=== PATIENT | male | born 1950 | race Caucasian/White ===

== ENCOUNTER 2016-05-06 09:29 | Inpatient (IN) | payer MEDICARE ==
[2016-05-06] VITALS (17 sets, daily range): BP systolic 57–157; BP diastolic 20–78; PULSE 102–142; RESP 24–38; TEMP 100.1–100.6; O2SAT 92–100
[2016-05-06] MEDS: RESP: ALBUTEROL 2.5 MG/IPRATROPIUM 0.5 MG NEB (SCH) INH (09:43)
[2016-05-06 09:44] LABS: AUTOMATED NEUTROPHIL # 18.5 TH/MM3 (1.8-7.7); BASOPHIL % 0.2 % (0.0-2.0); HEMATOCRIT 45.2 % (39.0-51.0); LYMPH % 7.1 % (9.0-44.0); LYMPHOCYTE # 1.5 TH/MM3 (1.0-4.8); MEAN CELL VOLUME 94.8 FL (80.0-100.0); MEAN CORPUSCULAR HEMOGLOBIN 31.5 PG (27.0-34.0); MEAN CORPUSCULAR HGB CONC 33.2 % (32.0-36.0); MONO % 5.1 % (0.0-8.0); NEUT % 87.6 % (16.0-70.0); PLATELET COUNT 246 TH/MM3 (150-450); RED BLOOD COUNT 4.76 MIL/MM3 (4.50-5.90); RED CELL DISTRIBUTION WIDTH 13.1 % (11.6-17.2); WHITE BLOOD COUNT 21.1 TH/MM3 (4.0-11.0)
[2016-05-06 09:45] LABS: HEMO FLAGS DIFF FINAL
[2016-05-06] MEDS ORDERED: SODIUM CHLORIDE 0.9% FLUSH 5 ML FLUSH IVF PRN ×2 (09:45→14:15)
[2016-05-06] MEDS ORDERED: SODIUM CHLOR 0.9% 1000 ML INJ 1,000 ML IV ONE ×4 (09:45→12:00)
[2016-05-06 09:54] LABS: CHLORIDE 104 MEQ/L (98-107); POTASSIUM 3.9 MEQ/L (3.5-5.1); SODIUM (NA) 143 MEQ/L (136-145)
[2016-05-06 09:56] LABS: ANION GAP 14 MEQ/L (5-15); APTT (PATIENT) 22.9 SEC (24.3-30.1); BICARBONATE 25.4 MEQ/L (21.0-32.0); BLOOD UREA NITROGEN 19 MG/DL (7-18); INTERNATIONAL NORMALIZED RATIO 0.9 RATIO; MAGNESIUM 2.5 MG/DL (1.5-2.5); PROTHROMBIN TIME - PATIENT 10.2 SEC (9.8-11.6)
[2016-05-06 09:59] LABS: ALT (GPT) 282 U/L (12-78); GLOMERULAR FILTRATION RATE 47 ML/MIN (>89)
[2016-05-06 10:00] LABS: AST (GOT) 211 U/L (15-37)
[2016-05-06] MEDS ORDERED: LORazepam 2 MG/ML VIAL IV PUSH ONE ×2 (10:00→12:00)
[2016-05-06 10:01] LABS: TOTAL BILIRUBIN ADULT 0.9 MG/DL (0.2-1.0)
--- NOTE | 2016-05-06 10:01 | PD ---
HPI Chief Complaint: Respiratory Distress Time Seen by Provider: 09:31 Travel History International Travel<30 days: No Contact w/Intl Traveler<30days: No Traveled to known affect area: No History of Present Illness HPI Patient is a 65-year-old male with history of end-stage COPD, presents to emergency room with complaints of COPD exacerbation. Patient reports that for the past 4 days, he has had increased nonproductive cough and wheezing and shortness of breath. Patient reports that symptoms have been getting progressively worse this morning, reports that he feels as if he can't breathe at this time. On route to the emergency room, patient was given Solu-Medrol 125 mg as well as 1 albuterol treatment with minimal relief of symptoms. As per EMS, patient refuses intubation in field. Patient does report that he was on hospice for COPD, reports that he recently took himself off of hospice. Patient in the emergency room is and respiratory distress, patient is alert and oriented 3. Patient reports that he's had a nonproductive cough for the past 3 days. Reports that he has had increased wheezing and shortness of breath, symptoms are worse today. Patient denies any fevers or chills or any sick contacts. Patient denies chest pain at this time. Patient currently using intubation, patient was asked multiple times what his CODE STATUS is. Patient is a DNR/DNI. Patient does not want to be intubated at any time during his course of ER treatment and hospital admission [facility] Past Medical History COPD: Yes Respiratory: Yes Past Surgical History Surgical History: No Previous Surgery Social History Alcohol Use: No Tobacco Use: No (past smoker) Allergies-Medications (Allergen,Severity, Reaction): Coded Allergies: No Known Allergies (Unverified , 05/06/16) Review of Systems General / Constitutional: No: Fever Eyes: No: Visual changes HENT: No: Headaches Cardiovascular: No: Chest Pain or Discomfort Respiratory: Positive: Cough, Shortness of Breath, Wheezing Gastrointestinal: No: Abdominal Pain Genitourinary: No: Dysuria Musculoskeletal: No: Pain Skin: No Rash Neurologic: No: Weakness Psychiatric: No: Depression Endocrine: No: Polydipsia Hematologic/Lymphatic: No: Easy Bruising Physical Exam Narrative GENERAL: Patient in severe distress SKIN: Warm and dry. HEAD: Atraumatic. Normocephalic. EYES: Pupils equal and round. No scleral icterus. No injection or drainage. ENT: No nasal bleeding or discharge. Mucous membranes pink and moist. NECK: Trachea midline. No JVD. CARDIOVASCULAR: Tachycardic. No murmur appreciated. RESPIRATORY: Patient with accessory muscle use. Expiratory wheezing bilaterally GASTROINTESTINAL: Abdomen soft, non-tender, nondistended. Hepatic and splenic margins not palpable. MUSCULOSKELETAL: No obvious deformities. No clubbing. No cyanosis. No edema. NEUROLOGICAL: Awake and alert. No obvious cranial nerve deficits. Motor grossly within normal limits. Normal speech. PSYCHIATRIC: Appropriate mood and affect; insight and judgment normal. Patient is alert and oriented 3 Data Data Last Documented VS Vital Signs Date Time Temp Pulse Resp B/P Pulse Ox O2 Delivery O2 Flow Rate FiO2 05/06/16 10:25 100.1 05/06/16 10:15 122 24 128/77 BiPAP 05/06/16 09:58 93 40 Orders Complete Blood Count With Diff (05/06/16 09:32) Comprehensive Metabolic Panel (05/06/16:32) B-Type Natriuretic Peptide (05/06/16:32) Act Partial Throm Time (Ptt) (05/06/16 09:32) Prothrombin Time / Inr (Pt) (05/06/16:32) Magnesium (Mg) (05/06/16:32) Ckmb (Isoenzyme) Profile (05/06/16:32) Troponin I (05/06/16 09:32) Arterial Blood Gas (Abg) (05/06/16 09:32) Urinalysis - C+S If Indicated (05/06/16:32) Influenzae A/B Antigen (05/06/16:32) Blood Culture (05/06/16 09:32) Iv Access Insert/Monitor (05/06/16:32) Electrocardiogram (05/06/16:32) Ecg Monitoring (05/06/16:32) Oximetry (05/06/16:32) Oxygen Administration (05/06/16 09:32) Sodium Chloride 0.9% Flush (Ns Flush) (05/06/16 09:45) Albuterol-Ipratropium Neb (Duoneb Neb) (05/06/16 09:45) Resp Bipap / Cpap Non Invas Vt (05/06/16 09:32) Chest, Single Ap (05/06/16 09:35) Magnesium Sulfate 1 Gm Premix (Magnesium (05/06/16 09:45) Sodium Chlor 0.9% 1000 Ml Inj (Ns 1000 M (05/06/16 09:45) Lorazepam Inj (Ativan Inj) (05/06/16 10:00) CKMB (05/06/16 09:33) CKMB% (05/06/16 09:33) Lactic Acid Sepsis Protocol (05/06/16 10:13) Ceftriaxone Inj (Rocephin Inj) (05/06/16 10:14) Azithromycin Inj (Zithromax Inj) (05/06/16 10:14) Sodium Chlor 0.9% 1000 Ml Inj (Ns 1000 M (05/06/16 10:15) Sodium Chlor 0.9% 1000 Ml Inj (Ns 1000 M (05/06/16 10:15) Acetaminophen Supp (Tylenol Supp) (05/06/16 10:45) Lorazepam Inj (Ativan Inj) (05/06/16 12:00) Sodium Chlor 0.9% 1000 Ml Inj (Ns 1000 M (05/06/16 12:00) Code Status (05/06/16 11:58) Admit Order (Ed Use Only) (05/06/16 11:58) Consult Palliative Care (05/06/16 ) Aspirin Supp (Aspirin Supp) (05/06/16 12:00) Labs Laboratory Tests Test 05/06/16 05/06/16 05/06/16 09:33 10:25 10:45 White Blood Count 21.1 TH/MM3 Red Blood Count 4.76 MIL/MM3 Hemoglobin 15.0 GM/DL Hematocrit 45.2 % Mean Corpuscular Volume 94.8 FL Mean Corpuscular Hemoglobin 31.5 PG Mean Corpuscular Hemoglobin 33.2 % Concent Red Cell Distribution Width 13.1 % Platelet Count 246 TH/MM3 Mean Platelet Volume 8.4 FL Neutrophils (%) (Auto) 87.6 % Lymphocytes (%) (Auto) 7.1 % Monocytes (%) (Auto) 5.1 % Eosinophils (%) (Auto) 0.0 % Basophils (%) (Auto) 0.2 % Neutrophils # (Auto) 18.5 TH/MM3 Lymphocytes # (Auto) 1.5 TH/MM3 Monocytes # (Auto) 1.1 TH/MM3 Eosinophils # (Auto) 0.0 TH/MM3 Basophils # (Auto) 0.0 TH/MM3 CBC Comment DIFF FINAL Differential Comment Prothrombin Time 10.2 SEC Prothromb Time International 0.9 RATIO Ratio Activated Partial 22.9 SEC Thromboplast Time Sodium Level 143 MEQ/L Potassium Level 3.9 MEQ/L Chloride Level 104 MEQ/L Carbon Dioxide Level 25.4 MEQ/L Anion Gap 14 MEQ/L Blood Urea Nitrogen 19 MG/DL Creatinine 1.50 MG/DL Estimat Glomerular Filtration 47 ML/MIN Rate Random Glucose 278 MG/DL Calcium Level 8.5 MG/DL Magnesium Level 2.5 MG/DL Total Bilirubin 0.9 MG/DL Aspartate Amino Transf 211 U/L (AST/SGOT) Alanine Aminotransferase 282 U/L (ALT/SGPT) Alkaline Phosphatase 101 U/L Total Creatine Kinase 131 U/L Creatine Kinase MB 6.3 NG/ML Troponin I 2.67 NG/ML B-Type Natriuretic Peptide 38 PG/ML Total Protein 7.8 GM/DL Albumin 4.3 GM/DL Blood Gas Puncture Site RT RADIAL Blood Gas Patient Temperature 98.6 Blood Gas HCO3 20 mmol/L Blood Gas Base Excess -6.8 mmol/L Blood Gas Oxygen Saturation 97 % Arterial Blood pH 7.20 Arterial Blood Partial 53 mmHG Pressure CO2 Arterial Blood Partial 160 mmHG Pressure O2 Arterial Blood Oxygen Content 21.5 Vol % Arterial Blood 1.1 % Carboxyhemoglobin Arterial Blood Methemoglobin 1.0 % Blood Gas Hemoglobin 15.6 G/DL Oxygen Delivery Device BIPAP Blood Gas Ventilator Setting IPAP 15/EPAP 5 Blood Gas Inspired Oxygen 45 % Lactic Acid Level 7.7 mmol/L MDM Medical Decision Making Medical Screen Exam Complete: Yes Emergency Medical Condition: Yes Interpretation(s) EKG at 930: Sinus tachycardia at 138 beats for minute, qt/qtc: 276/412, no acute st or t wave changes Vital Signs Date Time Temp Pulse Resp B/P Pulse Ox O2 Delivery O2 Flow Rate FiO2 05/06/16 09:43 99 BiPAP 35 05/06/16 09:30 134 38 157/77 92 Differential Diagnosis COPD exacerbation, pneumothorax, pneumonia, influenza, ACS, arrhythmia Narrative Course Patient is a 65-year-old male who presents to emergency room with COPD exacerbation. Reports that for the past few days, he has had increased shortness of breath and wheezing. Patient reports that his cough has been more of a dry cough, reports no sick contacts at home. Patient was given Solu- Medrol 125 mg as well as 1 nebulizer treatment by EMS on route to the emergency room with minimal and for symptoms. Patient with moderate respiratory distress while in the emergency room. Patient is alert x3. Patient uses intubation at this time. Patient would like to be a DNR/DNI code status. I explained to patient in detail and multiple times what DNR/DNI means - patient understands. As per patient, he was recently on hospice for end-stage COPD, reports that he recently rescinded his hospice. Patient refuses intubation this time. Will optimize his treatment by putting him on BiPAP. Will give multiple DuoNeb's to BiPAP. Plan to give patient magnesium as well. Labs as well as x-ray chest ordered. Willl continue to monitor patient. Berenice (pt's partner): [phone] - reports that he has been feeling sob over the past few days, reports that he has hx of copd, he woke up this morning with c/o of sob and cough - he had minimal relief of symptoms with a neb tx at home. reports that he was on hospice a few months ago but took himself off of it because he didn't want to take all of their medications and didn't want to follow their rules. Reports that he took his himself off of hospice 2 days after he was placed on hospice. Pt's partner reports that when pt was on hospice, he was on liquid morphine - she did give him a dose of liquid morphine 100mg as well as ativan 0.5mg around 8am tonight. Berenice confirms his DNR/DNI code status pt's temp 100.6 - will give patient rectal acetaminophen pt tachycardia with wbc 21,000 (SIRS criteria)- fluid and antibiotics ordered for patient Reviewed all labs and all studies with patient's as well as family members were bedside, understands critical nature of patient and understands that he may decompensate and if he is not intubated. Family request that pt's wishes be respected and understands how sick patient is. As per his labs, pt does have lactate of 7.7, wbc 21.1, trop 2.67, cr: 1.20 and pH of 7.2 - patient has been pancultured and has been given broad-spectrum antibiotics for presumed sepsis with lung as the most likely source. X-ray chest does not show any obvious pneumonia at this time. Patient does have a lactic acidosis and elevated troponin - most likely from hypoperfusion and hypoxia. Will continue bipap at this time and attempt to keep patient comfortable. case reviewed with ICU attending who accepts pt to service patient hypotensive in ER, call made to ICU attending, request central line be placed call made to berenice, pt's poa - does not want central line placed at this time, does not want any life saving or heroic measures at this time. Request that patient be made comfortable. Dr. Wilder Farrell saw patient in bedside. Reviewed case with pt's significant other and POA - plan to place patient on hospice at this time. Pt will not be admitted to ICU. Patient's POA would like to see him in the ER to say her good byes, from there patient will be transferred to hospice. Critical Care Narrative Aggregate critical care time was 75 minutes. Time to perform other separately billable procedures was not included in the critical care time. My time did not include minutes spent treating any other patients simultaneously or on activities that did not directly contribute to the patient's treatment. The services I provided to this patient were to treat and/or prevent clinically significant deterioration that could result in: ,decompensation, deterioration I provided critical care services requiring my management, as noted below: Chart data review, documentation time, medication orders and management, vital sign assessments/reviewing monitor data, ordering and reviewing lab tests, ordering and interpreting/reviewing x-rays and diagnostic studies, care of the patient and discussion of the patient with the admitting physicians. Physician Communication Physician Communication case reviewed with dr lopez who accepts pt to service Diagnosis Primary Impression: Sepsis Qualified Code: A41.9 - Sepsis, due to unspecified organism Additional Impressions: COPD exacerbation NSTEMI (non-ST elevated myocardial infarction) Renal failure Hypoxia Admitting Information Admitting Physician Requests: Kenna Sumner DO May 06, 2016 10:01
[2016-05-06 10:02] LABS: ALKALINE PHOSPHATASE 101 U/L (45-117); CREATINE KINASE 131 U/L (39-308)
--- NOTE | 2016-05-06 10:09 | RADHPO ---
EXAM DATE/TIME: 05/06/2016 09:50 [facility] COMPARISON: No previous studies available for comparison. INDICATIONS : Short of breath MEDICAL HISTORY : unobtainable SURGICAL HISTORY : unobtainable ENCOUNTER: Initial ACUITY: 1 day PAIN SCORE: Non-responsive. LOCATION: Bilateral chest FINDINGS: 2 AP portable erect views of the chest were obtained and demonstrate hyperinflation of both lungs wit h underlying bullous change and mild scarring. There are no infiltrates or effusions. The heart size is within normal limits with no perihilar edema. There are multiple overlying electrocardiogram leads . There is mild motion artifact. The bony thorax appears intact. CONCLUSION: 1. Changes characteristic of underlying emphysema. 2. Motion artifact. Christiano Damon MD on May 06, 2016 at 10:06 Board Certified Radiologist. This report was verified electronically.
[2016-05-06 10:14] LABS: CKMB 6.3 NG/ML (0.5-3.6)
[2016-05-06] MEDS ORDERED: AZITHROMYCIN INJ 500 MG in SODIUM CHLOR 0.9% 250 ML INJ 250 ML IV STA (10:14)
[2016-05-06] MEDS ORDERED: cefTRIAXone INJ 2,000 MG in SODIUM CHLORIDE 0.9% INJ 100 ML IV STA (10:14)
[2016-05-06 10:38] LABS: BLOOD GAS BASE EXCESS -6.8 mmol/L (-2-2); BLOOD GAS CARBOXYHEMOGLOBIN 1.1 % (0-4); BLOOD GAS HCO3 20 mmol/L (22-26); BLOOD GAS O2 HGB SATURATION 97 % (90-100); BLOOD GAS OXYGEN CONTENT 21.5 Vol % (12.0-20.0); BLOOD GAS PCO2 53 mmHG (38-42); BLOOD GAS PO2 160 mmHG (61-120); BLOOD GAS TOTAL HGB 15.6 G/DL (12.0-16.0); CRITICAL VALUE YES; OXYGEN DEVICE BIPAP; TEMP CORR TO 98.6; VENT SETTINGS IPAP 15/EPAP 5
[2016-05-06 10:39] LABS: DRAW SITE RT RADIAL; FIO2 45 %; NUMBER OF ARTERIAL PUNCTURES 1; STAT YES; ULNAR PULSE PRESENT
[2016-05-06] MEDS ORDERED: ACETAMINOPHEN 650 MG SUPP RECTAL ONE (10:45)
[2016-05-06] MEDS: MAGNESIUM SULFATE 1 GM PREMIX 100 ML IV SCH ×2 (10:56→11:11)
[2016-05-06] MEDS ORDERED: ASPIRIN 600 MG SUPP RECTAL ONE (12:00)
[2016-05-06] MEDS ORDERED: MORPHINE SULFATE 8 MG/ML INJ IV PUSH ONE (12:15)
[2016-05-06 12:50] LABS: LACTIC ACID GHOST NOT REPORTABLE
[2016-05-06] MEDS ORDERED: ASPIRIN 300 MG SUPP RECTAL ONE (13:30)
[2016-05-06] MEDS ORDERED: RESP: ALBUTEROL 2.5 MG/IPRATROPIUM 0.5 MG NEB (PRN) INH (14:15)
[2016-05-06] MEDS ORDERED: MORPHINE SULFATE 4 MG/ML INJ IV PRN ×2 (14:15→16:30)
[2016-05-06] MEDS ORDERED: MISCELLANEOUS NURSING INFORMATION XX SCH (14:15)
[2016-05-06] MEDS ORDERED: CHLORHEXIDINE GLUCONATE 2 % 1 PACK (2 CLOTHS) TOP PRN (14:15)
--- NOTE | 2016-05-06 14:24 | PD.CONS ---
Consult Service Palliative Care Consult Requested By [facility] Primary Care Physician Non-Staff Reason for Consultation a. To assist with evaluation and management of symptoms including: dyspnea b. To assist medical decision maker(s) with: better understanding of current medical conditions; weighing benefits/burdens of medical treatment options; making medical treatment decisions. HPI History of Present Illness Patient is a 65-year-old with a past medical history significant for COPD, elevated PSA in which patient does not want further testing. Patient previously was a hospice patient from February 07, 2016 to February 12, 2016. Patient did not want to take recommended meds like Decadron and duo med and feel he came onto hospice too early. Patient also wanted to travel the country including trips to [place] if other restriction of hospice, as hospice cannot accommodate range outside our area services. Patient showed up to the [facility] emergency department on 05/06/2016 with reports of 4 days nonproductive cough, wheezing, shortness of breath. In the ER : * Temperature is 100.1, pulse is 134, respiration is 38, blood pressure is 157/ 77. Patient was placed on a BiPAP * WBCs 21.1, hemoglobin is 15, hematocrit is 45.2, platelet is 246 * Sodium is 143, potassium 3.9 chloride is 14, bicarbonate 25.4, BUN is 19, creatinine is 1.5 * Lactic acid 7.7, AST is 211, ALTs to 82, troponin I is 2.67, BNP is 38. ER feels most likely from hypoperfusion and hypoxia. * PT and INR is unremarkable * X-ray shows underlying emphysema. The no acute changes. * EKG shows sinus tachycardia. No acute ST or T waves. * ER physician reviewed advanced directives, and spoke with patient and he confirms he does not want any intubation or CPR. Healthcare surrogate's/ significant other Rigoberto was also called and reaffirmed patient's DNR. Patient was transferred to the ICU, the patroller was consulted. Palliative care was consulted to review goals of care. Patient remains on BiPAP, was given Rocephin and azithromycin in the ER. Patient given 2 nebs. Pt on my visit has decline significantly, is unresponsive, and hypotensive. ER physician and myself and POA does not want anymore heroic measures. She is aware pt is actively dying. Amenable to [facility] and consult Hospice once she arrives in the hospital. Review comfort meds in which she is amenable to. Function/Cognitive Trajectory Pt was a hospice patient. O2 dependent, and easily get dyspneic. Review of Systems ROS Limitations: Clinical Condition (actively dying.) Past Family Social History Coded Allergies: No Known Allergies (Unverified , 05/06/16) Past Medical History COPD Elevated PSA which patient does not want further workup. Past Surgical History None Reported Medications Nebulizers Inhalers Current Medications Medications (Trade) Dose Ordered Sig/Ruddy Route Start Time Stop Time Status Last Admin (NS Flush) 2 ml UNSCH PRN IVF 05/06/16 09:45 Family History unable to elicit, pt actively dying, non verbal, non arousable. Substance Use Tobacco: He smokes Alcohol: Denies Prescription med abuse: No Illicits: None Psychosocial History Patient originally from [place] Has a significant other Rigoberto adler, who is designated as HCS. Moved to [place] in 1969. No children. 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 Spiritual/Cultural Factors And not denominational Living Will: Copy in medical record Health Care Surrogate: Copy in medical record Durable Power of Sales Department Manager: Copy in medical record Health Care Surrogate(s): Rigoberto Adler Physical Exam Vital Signs Date Time Temp Pulse Resp B/P Pulse Ox O2 Delivery O2 Flow Rate FiO2 05/06/16 12:28 96 35 05/06/16 10:25 100.1 05/06/16 09:58 93 40 05/06/16 09:43 99 BiPAP 35 05/06/16 09:30 134 38 157/77 92 Exam CONSTITUTIONAL/GENERAL: This is an adequately nourished patient, on bipap SKIN: No jaundice, rashes, or lesions. Ecchymoses on upper extremities. No wounds seen anteriorly. Skin temperature appropriate. Not diaphoretic. HEAD: Atraumatic. Normocephalic. EYES: eyes closed did not force open ENT: Nose without bleeding or purulent drainage. Throat without visible erythema, exudates, masses, or lesions. NECK: Trachea midline. Supple, nontender. No palpable thyroid enlargement or nodularity. CARDIOVASCULAR: Regular rate and rhythm without murmurs, gallops, or rubs. No JVD. Peripheral pulses symmetric. RESPIRATORY/CHEST: decrease breath sound bilaterally. On bipap. Tachpneic. GASTROINTESTINAL: Abdomen soft, non-tender, nondistended. GENITOURINARY: Without palpable bladder distension. Sharp catheter in place. MUSCULOSKELETAL: Extremities without clubbing, cyanosis, or edema. No joint tenderness or effusion noted. No calf tenderness. No mottling or clubbing. LYMPHATICS: No palpable cervical or supraclavicular adenopathy. NEUROLOGICAL: unresponsive on my exam. Diagnostic Tests Laboratory Laboratory Tests Test 05/06/16 05/06/16 05/06/16 09:33 10:25 10:45 White Blood Count 21.1 TH/MM3 (4.0-11.0) Red Blood Count 4.76 MIL/MM3 (4.50-5.90) Hemoglobin 15.0 GM/DL (13.0-17.0) Hematocrit 45.2 % (39.0-51.0) Mean Corpuscular Volume 94.8 FL (80.0-100.0) Mean Corpuscular Hemoglobin 31.5 PG (27.0-34.0) Mean Corpuscular Hemoglobin 33.2 % Concent (32.0-36.0) Red Cell Distribution Width 13.1 % (11.6-17.2) Platelet Count 246 TH/MM3 (150-450) Mean Platelet Volume 8.4 FL (7.0-11.0) Neutrophils (%) (Auto) 87.6 % (16.0-70.0) Lymphocytes (%) (Auto) 7.1 % (9.0-44.0) Monocytes (%) (Auto) 5.1 % (0.0-8.0) Eosinophils (%) (Auto) 0.0 % (0.0-4.0) Basophils (%) (Auto) 0.2 % (0.0-2.0) Neutrophils # (Auto) 18.5 TH/MM3 (1.8-7.7) Lymphocytes # (Auto) 1.5 TH/MM3 (1.0-4.8) Monocytes # (Auto) 1.1 TH/MM3 (0-0.9) Eosinophils # (Auto) 0.0 TH/MM3 (0-0.4) Basophils # (Auto) 0.0 TH/MM3 (0-0.2) CBC Comment DIFF FINAL Differential Comment Prothrombin Time 10.2 SEC (9.8-11.6) Prothromb Time International 0.9 RATIO Ratio Activated Partial 22.9 SEC Thromboplast Time (24.3-30.1) Sodium Level 143 MEQ/L (136-145) Potassium Level 3.9 MEQ/L (3.5-5.1) Chloride Level 104 MEQ/L (98-107) Carbon Dioxide Level 25.4 MEQ/L (21.0-32.0) Anion Gap 14 MEQ/L (5-15) Blood Urea Nitrogen 19 MG/DL (7-18) Creatinine 1.50 MG/DL (0.60-1.30) Estimat Glomerular Filtration 47 ML/MIN (>89) Rate Random Glucose 278 MG/DL (74-106) Calcium Level 8.5 MG/DL (8.5-10.1) Magnesium Level 2.5 MG/DL (1.5-2.5) Total Bilirubin 0.9 MG/DL (0.2-1.0) Aspartate Amino Transf 211 U/L (15-37) (AST/SGOT) Alanine Aminotransferase 282 U/L (12-78) (ALT/SGPT) Alkaline Phosphatase 101 U/L (45-117) Total Creatine Kinase 131 U/L (39-308) Creatine Kinase MB 6.3 NG/ML (0.5-3.6) Troponin I 2.67 NG/ML (0.02-0.05) B-Type Natriuretic Peptide 38 PG/ML (0-100) Total Protein 7.8 GM/DL (6.4-8.2) Albumin 4.3 GM/DL (3.4-5.0) Blood Gas Puncture Site RT RADIAL Blood Gas Patient Temperature 98.6 Blood Gas HCO3 20 mmol/L (22-26) Blood Gas Base Excess -6.8 mmol/L (-2-2) Blood Gas Oxygen Saturation 97 % (90-100) Arterial Blood pH 7.20 (7.380-7.420) Arterial Blood Partial 53 mmHG (38-42) Pressure CO2 Arterial Blood Partial 160 mmHG Pressure O2 (61-120) Arterial Blood Oxygen Content 21.5 Vol % (12.0-20.0) Arterial Blood 1.1 % (0-4) Carboxyhemoglobin Arterial Blood Methemoglobin 1.0 % (0-2) Blood Gas Hemoglobin 15.6 G/DL (12.0-16.0) Oxygen Delivery Device BIPAP Blood Gas Ventilator Setting IPAP 15/EPAP 5 Blood Gas Inspired Oxygen 45 % Lactic Acid Level 7.7 mmol/L (0.4-2.0) Result Diagram: 05/06/1693205/06/16932 Microbiology Microbiology Date/Time Procedure Status Source Growth 05/06/16 09:50 Aerobic Blood Culture Received Blood Peripheral Pending 05/06/16 09:50 Anaerobic Blood Culture Received Blood Peripheral Pending 05/06/16 10:45 Aerobic Blood Culture Received Blood Peripheral Pending 05/06/16 10:45 Anaerobic Blood Culture Received Blood Peripheral Pending Imaging Last Impressions Chest X-Ray 05/06/16934 Signed Impressions: Service Date/Time: April 09:50 - CONCLUSION: 1. Changes characteristic of underlying emphysema. 2. Motion artifact. Christiano Damon MD Patient/Family Conference Present at Family Conference: Rigoberto Adler Family Conference Time (mins): 30 Family Conference Location: Telephone Issues Discussed: * Palliative care role, purpose, approach * Additional medical, psychosocial, and spiritual history * Patients general health, functional status, and cognitive changes in the months leading up to the current hospitalization * Patient/family understanding of the current medical problems * Patient/family understanding of prognosis * Patients goals of care as best understood from advance directives and/or conversations and/or values * Current medical treatment options and benefits/burdens of those options * Likely scenarios comparing ongoing aggressive care with a transition to comfort measures only * Questions answered to the best of my ability * Palliative care contact information provided Assessment and Plan Disease Oriented Problem List: (1) COPD exacerbation (2) Sepsis Symptom Scale: (1) Dyspnea 0-10 Scale: Unable to quantify Pertinent Non-Medical Issues Psychosocial: Spiritual: Legal: Ethical issues impacting care: Important Contacts Rigoberto Adler(listed on EMR) Prognosis ES COPD, is hospice appropriate. Pt despite bipap continue to decline, is hypotensive, is actively dying. Code Status: No Code Plan ==Code- DNR- has community DNR == HCS/POA- Rigoberto Adler == Goals: Rigoberto Adler aware pt is actively dying. Does not want any heroic measures. Rigoberto is planning to come to the ER, with these 2 hours. Amenable to hospice consult. When Rigoberto arrives, amenable to transfer to care center for comfort measures only. Amenable to comfort meds. I have called hospice and they will contact Rigoberto and set up logistics. Offer thomas, and accepted, pt is hinduism. == dyspnea- morphine and ativan prn ordered. == Palliative care will continue to follow. Thank you for the opportunity to participate in the care of Mr. Yanes. Attestation To help prompt me to consider important information that might be impacting today's encounter and assessment, information from prior notes written by myself or my colleagues may have been "brought forward" into today's note. My signature on this note, however, is an attestation that I personally performed the exam, history, and/or decision-making noted today, and, unless otherwise indicated, the interactions with patient, family, and staff as well as the review of records all occurred today. I also attest that the listed assessment and stated plan reflect my best clinical judgment today based on the combination of historical information, prior notes, and today's exam/ interactions. When time spent is documented, it refers only to time spent today by the signer, or if indicated, combined time spent today by collaborating physician/nurse practitioner. Wilder Farrell MD May 06, 2016 14:24
[2016-05-06] MEDS ORDERED: NOREPINEPHRINE-DEXTROSE DRIP 250 ML IV SCH (15:00)
[2016-05-06] MEDS ORDERED: PIPERACIL-TAZO 4.5 GM PREMIX 100 ML IV SCH (15:00)
[2016-05-06] MEDS ORDERED: ENOXAPARIN SODIUM 40 MG/0.4 ML SYRINGE SQ SCH (15:00)
[2016-05-06 15:36] LABS: BLOOD, URINE TRACE (NEG); GLUCOSE,URINE NEG (NEG); KETONE, URINE NEG (NEG); NITRITE,URINE NEG (NEG)
[2016-05-06 15:44] LABS: HYALINE CAST, URINE 0-2 /lpf (RARE); URINE COLOR YELLOW (YELLW/STRAW)
[2016-05-06 15:45] LABS: COMMENT (UR) CULT NOT INDICATED; CULTURE IF INDICATED CULT NOT INDICATED; RBC, URINE 0-3 /hpf (0-3); SQUAMOUS EPITHELIAL CELL URINE 0-5 /hpf (0-5)
[2016-05-06] MEDS ORDERED: VANCOMYCIN INJ 1,150 MG in SODIUM CHLOR 0.9% 250 ML INJ 250 ML IV SCH (16:00)
[2016-05-06] MEDS ORDERED: RESP: ALBUTEROL 2.5 MG/IPRATROPIUM 0.5 MG NEB (SCH) NEB (16:00)
[2016-05-06] MEDS ORDERED: MORPHINE SULFATE 8 MG/ML INJ IV PUSH PRN (16:30)
[2016-05-06] MEDS ORDERED: LORazepam 2 MG/ML VIAL IV PRN ×2 (16:30)
[2016-05-06] MEDS: LORazepam 2 MG/ML VIAL IV PUSH ONE ×2 (19:00→19:02)
--- NOTE | 2016-05-06 19:29 | HHI.PR ---
Addendum to Inpatient Note Addendum Reason: Additional Documentation Additional Information Patient had initially been accepted for admission by critical care medicine however subsequently patient's POA was contacted for hypotension by Dr. Farrell from the ER and at that point decided that she did not want further invasive procedures including central line placement and initiation of pressors for hypotension. Palliative care team evaluated the patient and Dr. Wilder Farrell discussed options with patient's POA who elected to focus more on comfort measures and wished to have patient transferred to hospice. Dr. Frarell informed me that per POA's wishes patient would not be admitted to the ICU however after she visits with the patient will be transferred to hospice facility. She is canceling admission to ICU at this point. Denton Sinha MD May 06, 2016 19:29
[2016-05-06] MEDS ORDERED: CHLORHEXIDINE 0.12% (ORAL KIT) 15 ML CUP MT SCH (20:00)
--- NOTE | 2016-05-06 20:37 | MB ---
cc: DENTON CANTU MD, ARJUN DATE OF CONSULTATION: 05/06/[address] Denton Cantu REASON FOR CONSULTATION Pulmonary management. HISTORY OF PRESENT ILLNESS Mr. Yanes is a [id number]-tum-male with a history of COPD. For many years he did not take any treatment then he started seeing [facility]. He was in Hospice for a few days and he rescinded himself. He came to the hospital with worsening of his shortness of breath and congestion in his chest. He was worked up in the hospital. His blood gas shows pH 7.20, pCO2 of 53, pO2 160, bicarb 20 on BiPAP 45%. His WBC count 21.0, hemoglobin 15, hematocrit 45.2, MCV 94, platelet count 246. Sodium 143, potassium 3.9, chloride 104, CO2 25, BUN 19, creatinine 1.90, lactic acid 7.4. His INR is 0.9. Chest x-ray showed COPD changes. PAST MEDICAL HISTORY Significant for a history of - 1. Severe COPD. 2. Chronic respiratory failure. 3. Hypoxia. 4. Respiratory acidosis. 5. Possible prostate cancer. MEDICATIONS He is currently taking - 1. Protonix 40 mg. 2. Morphine 2 mg. 3. Vancomycin IV. 4. Lovenox 40 mg. 5. Zosyn IV. ALLERGIES NO KNOWN DRUG ALLERGIES. SOCIAL HISTORY A long history of smoking which he switched to electronic cigarettes. He has minimal alcohol use. 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 FAMILY HISTORY He was a long time ago, now he has been living with his significant other female partner for the last 19 years but did not get . He does not have any children and she does not have any children. REVIEW OF SYSTEMS He has going downhill and expressed the desire not to do anything. PHYSICAL EXAMINATION GENERAL: Elderly male, mild to moderate short of breath. VITAL SIGNS: Blood pressure 101/74, heart rate 108, respiration 24, temperature 98. HEENT: Pupils are equal and reactive. NECK: Supple. JVP not raised. CHEST: He has decreased chest excursion, decreased breath sound, a few rhonchi. CARDIOVASCULAR: S1, S2 normal. ABDOMEN: Benign. EXTREMITIES: No edema. IMPRESSION 1. Hypercapnic respiratory failure. 2. Severe COPD. 3. Sepsis. 4. Nicotine use. PLAN I discussed with the patient and his significant other. They have decided that they do not want any aggressive measures and do want to proceed with Hospice. Hospice has evaluated the patient and he will be transferred to the [facility]. I will give him supplemental oxygen and aerosol treatment. His overall prognosis is poor. Thank you Dr. Cantu for this consultation. MD CARLYN Rodriguez/HAIDER /7:37 PM /8:01 PM
[2016-05-06] MEDS ORDERED: SODIUM CHLORIDE 0.9% FLUSH 5 ML FLUSH IVF SCH (21:00)
[2016-05-07] MEDS ORDERED: CHLORHEXIDINE GLUCONATE 2 % 1 PACK (2 CLOTHS) TOP SCH (04:00)
[2016-05-07] MEDS ORDERED: PANTOPRAZOLE SODIUM 40 MG VIAL IV SCH (09:00)
--- NOTE | 2016-05-07 19:38 | EKG ---
Date Performed: 05/06/2016 Time Performed: 09:31:06 PTAGE: 65 years EKG: Sinus tachycardia. Left axis deviation Inferior infarct - age undetermined Possible anterio r infarct - age undetermined Low QRS voltages in limb leads Abnormal ECG NO PREVIOUS TRACING DOCTOR: Nile George Interpretating Date/Time 05/07/2016 19:37:05
== END 2016-05-06 23:30 | disposition hospice, home (50) | DRG 872 ==
LOC: PHED 09:29 → PHEDA 12:01
PROVIDERS: ADMIT Internal Medicine Critical Care Medicine; ATTEND Internal Medicine Critical Care Medicine
PROC: 5A09357 Assistance with Respiratory Ventilation, Less than 24 Consecutive Hours, Continuous Positive Airway Pressure (ICD-10-PCS; principal; 2016-05-06)
DX: A41.9 Sepsis, unspecified organism (principal); J44.1 Chronic obstructive pulmonary disease with (acute) exacerbation; J96.11 Chronic respiratory failure with hypoxia; E87.2 Acidosis; Z99.81 Dependence on supplemental oxygen; N19 Unspecified kidney failure; F17.200 Nicotine dependence, unspecified, uncomplicated; Z66 Do not resuscitate; R97.20 Elevated prostate specific antigen [PSA]
CPT/HCPCS: 36600; 71010; 80053; 81001; 82550; 82552; 82805; 83605; 83735; 83880; 84484; 85025; 85610; 85730; 87040; 93005; 94002; 94640; 94664; 96365; 96368; 96375; 96376; 99292; J0456; J0696; J2060; J2270; J3475; J7030; J7050